=== PATIENT | male | born 1990 | race Caucasian/White ===

== ENCOUNTER 2017-01-19 09:25 | Emergency (ER) | payer OTHER ==
--- NOTE | 2017-01-19 09:41 | EDPHY ---
H & P Stated Complaint: yesterday twisted Lt ankle while working Time Seen by Provider: 01/19/17 09:36 HPI/ROS: Chief complaint: Left ankle pain HPI: 26-year-old male began developing ankle pain yesterday afternoon while working. Patient works as a bricklayer tender, does not recall a specific injury but in the afternoon started developing worsening pain in his left ankle. He may have twisted while at work. No prior injuries. No numbness or tingling. No redness or erythema. Pain is in the middle portion of his ankle. No pain in his foot. ROS: 10 point Review of Systems is negative except as noted in the HPI. Exam: General: Awake, alert, no acute distress Left leg: No knee tenderness, full range of motion without pain, no hip tenderness, full range of motion without pain Left ankle. He has got mild mid Kasey tenderness to palpation. No medial lateral calcaneal tenderness. No midfoot tenderness. He mild pain with plantar and dorsiflexion. Sensations intact in all dermatomes. No erythema. Capillary refills less than 3 seconds. Skin: No rash - Personal History Current Tetanus Diphtheria and Acellular Pertussis (TDAP): Yes - Medical/Surgical History Other PMH: denies Constitutional: Initial Vital Signs Temperature (C) 36.6 C 01/19/17 09:32 Heart Rate 68 01/19/17 09:32 Respiratory Rate 18 01/19/17 09:32 Blood Pressure 147/102 H 01/19/17 09:32 O2 Sat (%) 97 01/19/17 09:32 O2 Delivery Mode Room Air Allergies/Adverse Reactions: No Known Allergies Allergy (Unverified 01/19/17 09:32) Home Medications: Medication Instructions Recorded NK [No Known Home Meds] 01/19/17 Medical Decision Making - Diagnostics Imaging Results: No acute fracture deformity on his left ankle x-ray per my interpretation. Imaging: I viewed and interpreted images myself ED Course/Re-evaluation: 26-year-old with ankle sprain. Will place him in a Velcro stirrup and crutches , follow up with workman's Comp in 3-4 days. He may take ibuprofen and acetaminophen as needed for pain. Ice and elevate. Departure - Departure Disposition: Home, Routine, Self-Care Clinical Impression: Ankle sprain Condition: Good Instructions: Ankle Sprain (ED), Ankle Stirrup Splint (ED), Crutch Instructions (ED), RICE Therapy (ED), Ice Pack Application (ED) Additional Instructions: Follow up with workman's Comp in 3-4 days for re-evaluation. Referrals: Work Comp Referral [facility] [Outside] - As per Instructions Stand Alone Forms: Work Excuse, Work Comp Follow Up
[2017-01-19 10:39] VITALS: BP 136/92; PULSE 66; RESP 16; TEMP 97.9; O2SAT 96
== END 2017-01-19 10:30 | disposition home or self-care (01) ==
LOC: CED 09:25
DX: S93.402A Sprain of unspecified ligament of left ankle, initial encounter (principal); X58.XXXA Exposure to other specified factors, initial encounter; Y92.89 Other specified places as the place of occurrence of the external cause; Y99.0 Civilian activity done for income or pay; Y93.89 Activity, other specified
CPT/HCPCS: 73610-PO; L4350